=== PATIENT | female | born 1995 | race American Indian/Alaskan Native ===

== ENCOUNTER 2017-08-28 09:24 | Emergency (ER) | payer MEDICAID ==
[2015-03-30 06:25] VITALS: BMI 31.6
[2017-08-28] MEDS ORDERED: Lactated Ringer's 1,000 ML IV SCH (10:45)
[2017-08-28 11:18] LABS: SQUAMOUS EPITHIAL 4 /hpf (0-5); URINE BILIRUBIN NEGATIVE (NEGATIVE); URINE BLOOD NEGATIVE (NEGATIVE); URINE CLARITY Hazy (Clear); URINE COLOR Yellow (YELLOW); URINE GLUCOSE (UA) NORMAL (Normal); URINE LEUKOCYTE ESTERASE NEG Leu/uL (Negative); URINE NITRATE NEGATIVE (NEGATIVE); URINE PROTEIN 1+ mg/dL (NEGATIVE); URINE UROBILINOGEN NORMAL mg/dL (0.2-1.0)
--- NOTE | 2017-08-28 14:32 | OBDCSUM ---
Datetime: 08/28/2017 11:31 Discharged to, Provider: Home Follow up at, Provider: DR FACUNDO Mccarthy Instr Activity: Normal activity Disch Instr Diet: Regular Discharge Time: 08/28/2017 11:32 Follow up in weeks, Provider: 09/03/2017 Disch Referrals: None Disch Activity Restrictions: No exercising; Minimize stair-climbing; No sexual activity; Nothing in vagina - [place], tampons, douche Discharge Comment, Provider: no sex p hyt Discharge Diagnosis Prov Other: 22weeks r/o uti
--- NOTE | 2017-08-28 14:32 | OBHP ---
Datetime: 08/28/2017 11:59 IP Adm Impression: , intrauterine Admit Comment, IP Provider: Patient is a 21 year old [id number], who presents at 20 weeks and 3 days' ge station (HUANG 01/12/17 by LMP (04/07/17), complaining of lower abdominal pain of 2 weeks' duration. Rita ent states that the pain began and was initially manageable with position changes, but got worse (01/08 0) this morning prompting her to come to the hospital. Patient states that walking and lying flat nasima es the pain worse. Patient denies dysuria, moy hematuria and vaginal discharge/bleeding. Patient layton s been following at [facility] for this , but admits to scant care, only h aving 2 visits to date. Past obstetric history of positive for pre-term labor x2, but patient denies contractions and rupture of membranes on this occasion. Patient states she feels frequent movem ent and was feeling movement while being interviewed. Past OBHx 1) 2011, 38 weeks, male infant, 6lbs 7oz., (breech presentation), no complications 2) 2012, 37 weeks, male , _7lbs, (no TOLAC), no complications 3) 2014, _32 weeks, female , _5lbs, (no TOLAC), no complications Past GynHx FDLMP - April 07, 2017 Menarche - age 10 Cycles - irregular, between 28-30 days. Heavy bleeding first 3 days, non-painful Bleeding - 7 days STD Hx - Chlamydia (2009) treated Pap Hx - Atypical cells (2013), negative on re-testing. Last pap 3 weeks ago was normal. Patient d enies colposcopy, LEEP/Cryo and cone biopsies. Allergies: NKDA Medications: OTC vitamins (patient takes unreliably starting about 4 weeks gestation) PMHx: Patient denies PSHx: x3 FamHx Mom (34 years old, living) - possible AIDS, stomach cancer, hypertension, type 2 diabetes mellitus Dad (40's, living) - Hepatitis C, type 2 diabetes mellitus Social Hx EtOH - Patient denies. Tobacco - Patient denies. Drugs - Patient admits to cannibis in early , none since. Work - Unemployed Relationship - Boyfriend, father of the child VS: BP:118/56, HR:85, Temp: 98.8 Physical Examination: See above A/P: 21 year female at 20 week 3 days, HUANG (01/12/2018) by LMP (04/07/2017)complaining of low er abdominal pain of 2 weeks' duration 1. Stable, Afebrile 2. EFM: [place] (None) and FHR: 150, +accelerations and reactive 3. UA: Negative for infection 5. LR 1000ml bolus 6. Discharge home with pre-term labor precautions given, continue heavy hydration and advise to fo llow up for care at [facility]. 7. Plans discussed with attending Alejandro Frost DO, PGY-1 dr villanueva agrees Extremities - PN: Normal Abdomen - PN: Normal Back - PN: Not Done Breast - PN: Not Done Lungs - PN: Abnormal Heart - PN: Normal Thyroid - PN: Normal Neurologic - PN: Normal HEENT - PN: Abnormal General - PN: Normal FHR - Baseline A Provider: 150 Contraction Comments Provider: none Comments, ACOG Physical Exam: Gen: NAD Cardio: RRR, normal S1, S2 Pulm: CTA bilaterally Abdomen: Soft, Gravid Ext: No edema, no clubbing, no cyanosis EFM: TOCO: None FHR: 150, + accels, reactive Gestation - Est Wks by US: 20.3 EGA AdmitDate IP: 20.3 Vital Signs Provider: Reviewed; Within Normal Limits IP Chief Complaint: Maternal discomfort NICHD Variability Prov Fetus A: Moderate 6-25bpm NICHD Accel Fetus A IP Provider: 15X15 FHR Category Provider Fetus A: Category I NICHD Decel Fetus A IP Provider: None Dilatation, Provider: 0 Effacement, Provider: 0 Station, Provider: -3 Genitourinary Exam: Normal DTRs - PN: Not Done
[2017-08-28 18:56] VITALS: BP 118/56; PULSE 76; TEMP 98.8
== END 2017-08-28 11:30 | disposition home or self-care (01) ==
LOC: C.EROB 09:24
DX: O26.892 Other specified pregnancy related conditions, second trimester (principal); R10.30 Lower abdominal pain, unspecified; Z3A.20 20 weeks gestation of pregnancy
CPT/HCPCS: 81001; 99283; J7120

== ENCOUNTER 2017-10-25 16:46 | Observation (INO) | payer MEDICAID ==
[2017-10-25 17:15] VITALS: BMI 32.4
[2017-10-25] MEDS ORDERED: Lactated Ringer's 1,000 ML IV ONE (17:21)
[2017-10-25 17:24] LABS: BASO # 0.1 K/uL (0.0-0.2); BASO % 0.5 % (0.0-2.0); EOS # 0.3 K/uL (0.0-0.7); EOS % 2.2 % (0.0-4.0); HEMOGLOBIN 11.2 g/dL (11.0-16.0); LYMPH # 2.2 K/uL (1.0-4.3); LYMPH % 16.2 % (20.0-40.0); MEAN CELL VOLUME 91.9 fL (81.0-99.0); MEAN CORPUSCULAR HEMOGLOBIN 30.5 pg (27.0-31.0); MEAN CORPUSCULAR HGB CONC 33.2 g/dL (33.0-37.0); MONO # 0.5 K/uL (0.0-0.8); MONO % 4.1 % (0.0-10.0); NEUT # 10.2 K/uL (1.8-7.0); RBC 3.68 Mil/uL (3.80-5.20); RED CELL DISTRIBUTION WIDTH 13.9 % (11.5-14.5); WHITE BLOOD COUNT 13.3 K/uL (4.8-10.8)
[2017-10-25 17:32] LABS: SQUAMOUS EPITHIAL 19 /hpf (0-5); URINE BACTERIA OCC (<OCC); URINE BILIRUBIN NEGATIVE (NEGATIVE); URINE BLOOD NEGATIVE (NEGATIVE); URINE CLARITY Hazy (Clear); URINE COLOR Yellow (YELLOW); URINE GLUCOSE (UA) NORMAL (Normal); URINE LEUKOCYTE ESTERASE TRACE Leu/uL (Negative); URINE PROTEIN NEGATIVE (NEGATIVE); URINE UROBILINOGEN NORMAL mg/dL (0.2-1.0)
--- NOTE | 2017-10-25 18:21 | OBHP ---
Datetime: 10/25/2017 18:00 IP Adm Impression: , intrauterine Admit Comment, IP Provider: Patient is a 21 year old [id number], who presents at33.5 wks gestation (HUANG 01/12/17 by LMP (04/07/17), complaining of lower abdominal pain worsenign since yesterday. pt rpeorts c ramping localized in lwer pelvis was happenidng over 30 mintues so she says she wasn't paying attenti on to it but states started to get closer together. pt dneis any dysuria, urgency, consptaitn, vb, lo f, +FM. Pt reports urinary freuqency but is not new and assoicates to drining it with water. Pt dne is any fever, chills, nause, vomiting. Patient has been following at [facility] for this pre gnancy, but admits to scant care, only having 2 visits to date adn then transferred to Dr Basilio carney. Past OBHx 1) 2011, 38 weeks, male infant, 6lbs 7oz., (breech presentation), no complications 2) 2012, 37 weeks, male , _7lbs, (no TOLAC), no complications 3) 2014, _32 weeks, female infant, _5lbs, (no TOLAC), no complications Past GynHx FDLMP - April 07, 2017 Menarche - age 10 Cycles - irregular, between 28-30 days. Heavy bleeding first 3 days, non-painful Bleeding - 7 days STD Hx - Chlamydia (2009) treated Pap Hx - Atypical cells (2013), negative on re-testing. Last pap 3 weeks ago was normal. Patient d enies colposcopy, LEEP/Cryo and cone biopsies. Allergies: NKDA Medications: OTC vitamins (patient takes unreliably starting about 4 weeks gestation) PMHx: Patient denies PSHx: x3 FamHx Mom (34 years old, living) - possible AIDS, stomach cancer, hypertension, type 2 diabetes mellitus Dad (40's, living) - Hepatitis C, type 2 diabetes mellitus Social Hx EtOH - Patient denies. Tobacco - Patient denies. Drugs - Patient admits to cannibis in early , none since. Work - Unemployed Relationship - Boyfriend, father of the child VS: BP:118/56, HR:85, Temp: 98.8 Physical Examination: See above A/P: 21 year female at 33.5 HUANG (01/12/2018) by LMP (04/07/2017)complaining of lower abdomina l pain non specific -cbc -UA -IVH -pt reevlated, feels better -For celestone, f/u 24 hour for 2nd celestone - contraction given -f/u PMD tomorrow Pelvic Type - PN: Adequate Extremities - PN: Normal Abdomen - PN: Normal Back - PN: Normal Breast - PN: Not Done Lungs - PN: Normal Heart - PN: Normal Thyroid - PN: Not Done Neurologic - PN: Normal HEENT - PN: Normal General - PN: Normal FHR - Baseline A Provider: 150 Gestation - Est Wks by US: 33.5 EGA AdmitDate IP: 33.5 Vital Signs Provider: Reviewed; Within Normal Limits IP Chief Complaint: Maternal discomfort NICHD Variability Prov Fetus A: Moderate 6-25bpm FHR Category Provider Fetus A: Category I NICHD Decel Fetus A IP Provider: None Dilatation, Provider: 0 Effacement, Provider: 0 Station, Provider: -3 Genitourinary Exam: Normal DTRs - PN: Normal
[2017-10-25] MEDS ORDERED: Betamethasone Soluspan 30 mg/5mL Inj Susp IM ONE (18:25)
--- NOTE | 2017-10-25 20:37 | US ---
EXAM: US Biophysical Profile Without Non-Stress Testing EXAM DATE/TIME: Exam ordered 10/25/2017 7:40 PM CLINICAL HISTORY: 21 years old, female; Pain; Pain indication: Abd pain; ; Additional info: 32 weeks abdominal pain TECHNIQUE: Real-time ultrasound of the maternal pelvis for biophysical profile evaluation with image documentation. COMPARISON: No relevant prior studies available. FINDINGS: breathing movements: Present. Score 2/2. Gross body movements: Present. Score 2/2. tone: Present. Score 2/2. Qualitative amniotic fluid volume: Within normal limits. Score 2/2. Presentation: Vertex. Cervix: 4.3 cm in length and closed. Biometry BPD = [7.97 cm]; Estimated Menstrual Age = [32 w 0 d]; Range = [56D2V-83B2E] HC = [27.7 cm]; Estimated Menstrual Age = [30 w 2 d]; Range = [27W 2-D-33W 2D] AC = [28.68 cm]; Estimated Menstrual Age = [32 w 5 d]; Range = [14U4P-06U2I] FL = [6.31 cm]; Estimated Menstrual Age = [32 w 4 d]; Range = [50Q5I-23Y0I] HC/AC Ratio = [0.97] normal 0.96-1.14 EFW = 1158+ or -293 g (4 lbs. 5 oz. plus or -10 ounces) JOSE= 10.37 cm Placenta: Posterior Peak systolic velocity (umbilical artery): 59 cm/s; PS/ED is 1.9 HR =[146 bpm] Survey Lateral ventricles: not imaged 4 extremities: not imaged Posterior Fossa [Normal] Spine [Normal] Four-chamber Heart [Normal] Stomach [Normal] Kidneys [Normal] Bladder [Normal] Three-vessel cord: Normal Abdominal CORD insertion: Normal IMPRESSION: 1. Normal biophysical profile. 2. Single live intrauterine with an estimated menstrual age of 31 weeks and 6 days plus or -2 weeks and 2 days. 3. Limited survey. See above
--- NOTE | 2017-10-26 10:14 | OBPN ---
Datetime: 10/26/2017 10:09 Contraction Comments Provider: none FHR - Baseline A Provider: 130 IP Progress Note Comment: pt was seeen at bed side, c/o pain on walking,no vb, lof+fm nst 130 mod neo ve closed rosalba no ctxs plan betamethasone cont procardia reg deit cont close bser Vital Signs Provider: Reviewed; Within Normal Limits NICHD Accel Fetus A IP Provider: 15X15 FHR Category Provider Fetus A: Category I NICHD Variability Prov Fetus A: Moderate 6-25bpm Dilatation, Provider: 0 Effacement, Provider: 0 Station, Provider: -3 Datetime: 10/25/2017 18:00 Gestation - Est Wks by US: 33.5 NICHD Decel Fetus A IP Provider: None
--- NOTE | 2017-10-26 14:15 | OBPN ---
Datetime: 10/26/2017 14:10 Contraction Comments Provider: none FHR - Baseline A Provider: 130 IP Progress Note Comment: pt was seen at bed side, no ctxs, vb,lof+fm nst 130 mod neo ctg 1 s/p betamrthasone plan dc home betamethasone given ptl gven po hyra f/u in [facility] on thursday for betamethasone Vital Signs Provider: Reviewed; Within Normal Limits NICHD Accel Fetus A IP Provider: 15X15 FHR Category Provider Fetus A: Category I NICHD Variability Prov Fetus A: Moderate 6-25bpm
--- NOTE | 2017-10-26 14:15 | OBDCSUM ---
Datetime: 10/26/2017 14:10 Discharged to, Provider: Home Follow up at, Provider: Dr. Castillo Disch Instr Diet: Regular Discharge Time: 10/26/2017 14:11 Follow up in weeks, Provider: Thursday10/30/17 Disch Referrals: None Disch Activity Restrictions: No sexual activity; Nothing in vagina - [place], tampons, douche Discharge Comment, Provider: ptl nellie hillman f/u in [place] on thursday for betamethasone Discharge Diagnosis Prov Other: 33week nst ctxs
[2017-10-26 20:11] VITALS: BP 122/64; PULSE 101; RESP 18; TEMP 97.5; O2SAT 98
[2017-10-27] MEDS ORDERED: Betamethasone Soluspan 30 mg/5mL Inj Susp IM ONE (08:35)
== END 2017-10-26 15:00 | disposition home or self-care (01) ==
LOC: C.EROB 16:46 → C.4D 18:53
PROVIDERS: ADMIT Obstetrics & Gynecology; ATTEND Obstetrics & Gynecology
DX: O26.893 Other specified pregnancy related conditions, third trimester (principal); Z3A.33 33 weeks gestation of pregnancy
CPT/HCPCS: 76815; 76818; 81001; 85025; G0378; J0702; J7120

== ENCOUNTER 2017-10-27 08:44 | Emergency (ER) | payer MEDICAID ==
[2017-10-27 08:58] VITALS: BMI 32.3
[2017-10-27] MEDS ORDERED: Betamethasone Soluspan 30 mg/5mL Inj Susp IM ONE (09:00)
[2017-10-27 13:55] VITALS: BP 129/66; PULSE 90; RESP 18; TEMP 97.1
--- NOTE | 2017-10-27 21:34 | OBHP ---
Datetime: 10/27/2017 09:38 Admit Comment, IP Provider: Patient is a 21 year old [id number], who presents at 32 weeks and 3 days ges tation (HUANG 12/19/17 by approximated LMP (03/14/17) for 2nd betamethasone shot. Patient has no compali nts at this time. She denies any fever, chills, chest pain, SOB, changes in vision, dizziness, heada javon, abdominal pain, nausea, vomiting, changes in bowel habits, or urinary symptoms. Denies uterine c ontractions and endorses movement. Denies any blood, discharge, or fluid from the Vagina. Rita ent recently started Procardia yesterdia and stated she did not feel well because of it. She stated it caused her to feel dizzy and uneasy. ante[facility] to Dr. Castillo Past OBHx 1) 2011, 38 weeks, male infant, 6lbs 7oz., (breech presentation), no complications 2) 2012, 37 weeks, male infant, _7lbs, , no complications 3) 2014, _32 weeks PPROM, female infant, _5lbs, , no complications 4) Current Past GynHx FDLMP - March 14, 2017 (Approximated, patient is unsure) Menarche - age 10 Cycles - irregular, between 28-30 days. Heavy bleeding first 3 days, non-painful Bleeding - 7 days STD Hx - Chlamydia (2009) treated Pap Hx - Atypical cells (2013), negative on re-testing. Last pap 3 weeks ago was normal. Patient d enies colposcopy, LEEP/Cryo and cone biopsies. Allergies: NKDA Medications: OTC vitamins (patient takes unreliably starting about 4 weeks gestation). Pr ocardia 10mg TID PMHx: Patient denies PSHx: x3 FamHx: Mom (34 years old, living) - possible AIDS, stomach cancer, hypertension, type 2 diabetes mellitus Dad (40's, living) - Hepatitis C, type 2 diabetes mellitus Social Hx EtOH - Patient denies. Tobacco - Patient denies. Drugs - Patient admits to cannibis in early , none since. Work - Unemployed Relationship - Boyfriend, father of the child VS: BP:129/69, HR:95, Temp: 97.1 Physical Examination: Gen: NAD, AAOx3 Pulm: Lungs CTA Heart: +S1, S2, No Murmurs Abd: Gravid, Non-tender Ext: No pedal Edema, +2 capillary Refill, A/P: 21 year female at 32w3D HUANG (12/19/2017) by LMP (03/14/2017) present for 2nd dose of Be tamethasone. -Afebile, Stable - Monitoring -Betamethasone 12 mg IM -DC to Home Dispo: Patient was advised to call ObGyn (Dr. Castillo) if she continues to have side effects from t he procardia. She is aware of her follow up appointment on Thursday10/30/17. Pelvic rest has been gregoria nforced. Patient discussed with Attending Thao Staples, PGY1 patient examined.agree with above Extremities - PN: Normal Lungs - PN: Normal Heart - PN: Normal Neurologic - PN: Normal General - PN: Normal FHR - Baseline A Provider: 130 Vital Signs Provider: Reviewed NICHD Variability Prov Fetus A: Moderate 6-25bpm NICHD Accel Fetus A IP Provider: 15X15 FHR Category Provider Fetus A: Category I NICHD Decel Fetus A IP Provider: None Datetime: 10/26/2017 14:10 Contraction Comments Provider: none Datetime: 10/26/2017 10:09 Dilatation, Provider: 0 Effacement, Provider: 0 Station, Provider: -3 Datetime: 10/25/2017 18:00 EGA AdmitDate IP: 33.5
== END 2017-10-27 09:40 | disposition home or self-care (01) ==
LOC: C.EROB 08:44
DX: O26.893 Other specified pregnancy related conditions, third trimester (principal); Z3A.32 32 weeks gestation of pregnancy
CPT/HCPCS: 96372; 99283; J0702

== ENCOUNTER 2017-11-18 16:22 | Inpatient (IN) | payer MEDICAID ==
--- NOTE | 2017-11-18 16:47 | OBADHP ---
Datetime: 10/27/2017 09:38 Admit Comment, IP Provider: Patient is a 21 year old [id number], who presents at 32 weeks and 3 days ges tation (HUANG 12/19/17 by approximated LMP (03/14/17) for 2nd betamethasone shot. Patient has no compali nts at this time. She denies any fever, chills, chest pain, SOB, changes in vision, dizziness, heada javon, abdominal pain, nausea, vomiting, changes in bowel habits, or urinary symptoms. Denies uterine c ontractions and endorses movement. Denies any blood, discharge, or fluid from the Vagina. Rita ent recently started Procardia yesterdia and stated she did not feel well because of it. She stated it caused her to feel dizzy and uneasy. ante:[facility] to Dr. Castillo Past OBHx 1) 2011, 38 weeks, male infant, 6lbs 7oz., (breech presentation), no complications 2) 2012, 37 weeks, male infant, _7lbs, , no complications 3) 2014, _32 weeks PPROM, female infant, _5lbs, , no complications 4) Current Past GynHx FDLMP - March 14, 2017 (Approximated, patient is unsure) Menarche - age 10 Cycles - irregular, between 28-30 days. Heavy bleeding first 3 days, non-painful Bleeding - 7 days STD Hx - Chlamydia (2009) treated Pap Hx - Atypical cells (2013), negative on re-testing. Last pap 3 weeks ago was normal. Patient d enies colposcopy, LEEP/Cryo and cone biopsies. Allergies: NKDA Medications: OTC vitamins (patient takes unreliably starting about 4 weeks gestation). Pr ocardia 10mg TID PMHx: Patient denies PSHx: x3 FamHx: Mom (34 years old, living) - possible AIDS, stomach cancer, hypertension, type 2 diabetes mellitus Dad (40's, living) - Hepatitis C, type 2 diabetes mellitus Social Hx EtOH - Patient denies. Tobacco - Patient denies. Drugs - Patient admits to cannibis in early , none since. Work - Unemployed Relationship - Boyfriend, father of the child VS: BP:129/69, HR:95, Temp: 97.1 Physical Examination: Gen: NAD, AAOx3 Pulm: Lungs CTA Heart: +S1, S2, No Murmurs Abd: Gravid, Non-tender Ext: No pedal Edema, +2 capillary Refill, A/P: 21 year female at 32w3D HUANG (12/19/2017) by LMP (03/14/2017) present for 2nd dose of Be tamethasone. -Afebile, Stable - Monitoring -Betamethasone 12 mg IM -DC to Home Dispo: Patient was advised to call ObGyn (Dr. Castillo) if she continues to have side effects from t he procardia. She is aware of her follow up appointment on Thursday10/30/17. Pelvic rest has been gregoria nforced. Patient discussed with Attending Thao Staples, PGY1 patient examined.agree with above Extremities - PN: Normal Lungs - PN: Normal Heart - PN: Normal Neurologic - PN: Normal General - PN: Normal FHR - Baseline A Provider: 130 Vital Signs Provider: Reviewed NICHD Variability Prov Fetus A: Moderate 6-25bpm NICHD Accel Fetus A IP Provider: 15X15 FHR Category Provider Fetus A: Category I NICHD Decel Fetus A IP Provider: None Datetime: 10/26/2017 14:10 Contraction Comments Provider: none Datetime: 10/26/2017 10:09 Dilatation, Provider: 0 Effacement, Provider: 0 Station, Provider: -3 Datetime: 10/25/2017 18:00 Pelvic Type - PN: Adequate Abdomen - PN: Normal Back - PN: Normal Breast - PN: Not Done Thyroid - PN: Not Done HEENT - PN: Normal Gestation - Est Wks by US: 33.5 IP Chief Complaint: Maternal discomfort Genitourinary Exam: Normal DTRs - PN: Normal EGA AdmitDate IP: 33.5 IP Adm Impression: , intrauterine Datetime: 08/28/2017 11:59 Comments, ACOG Physical Exam: Gen: NAD Cardio: RRR, normal S1, S2 Pulm: CTA bilaterally Abdomen: Soft, Gravid Ext: No edema, no clubbing, no cyanosis EFM: TOCO: None FHR: 150, + accels, reactive
--- NOTE | 2017-11-18 17:22 | OBADHP ---
Datetime: 11/18/2017 17:18 Admit Comment, IP Provider: at 37.1week came with ctxs started last night, get worse today. pt toolk procardia and still feel ctxs, no vb, lof+fm obhx 3 x c/s pmh de med pnv all nkda psh c/s x3 soch de ve 2/60/-2 a/p at 37+weeks previous c/s in labor admit to l_d npo/ivf labs cont rosalba ad efm anthesia aware skin bxs type and cross informed consent taken Pelvic Type - PN: Adequate Extremities - PN: Normal Abdomen - PN: Normal Back - PN: Normal Breast - PN: Normal Lungs - PN: Normal Heart - PN: Normal Thyroid - PN: Normal Neurologic - PN: Normal HEENT - PN: Normal General - PN: Normal FHR - Baseline A Provider: 130 Contraction Comments Provider: irrg Comments, ACOG Physical Exam: gravid,non tender ext no edema,no calf ten ve 2/60/-2 IP Hx Assessment: The History has been Reviewed and is Current Vital Signs Provider: Reviewed; Within Normal Limits IP Chief Complaint: Uterine contractions NICHD Variability Prov Fetus A: Moderate 6-25bpm NICHD Accel Fetus A IP Provider: 15X15 FHR Category Provider Fetus A: Category I Dilatation, Provider: 2 Effacement, Provider: 60 Station, Provider: -2 Genitourinary Exam: Normal DTRs - PN: Normal EGA AdmitDate IP: 37.1 IP Adm Impression: Term, intrauterine ; Active labor IP Admit Plan: Admit to unit; Initiate Section protocol
[2017-11-18 17:23] VITALS: BMI 35.9
[2017-11-18] MEDS ORDERED: cefOXitin 2 GM in Sodium Chloride 0.9% 100 ML IVPB ONE (17:23)
[2017-11-18] MEDS ORDERED: Sodium Citrate/Citric Acid 15 ml Sol PO STA (18:02)
[2017-11-18] MEDS ORDERED: Sodium Citrate/Citric Acid 15 ml Sol ONE ×2 (18:12→18:24)
[2017-11-18 18:21] LABS: BASO % 0.1 % (0.0-2.0); EOS # 0.1 K/uL (0.0-0.7); EOS % 1.2 % (0.0-4.0); HEMOGLOBIN 11.3 g/dL (11.0-16.0); LYMPH % 17.7 % (20.0-40.0); MEAN CELL VOLUME 89.4 fL (81.0-99.0); MEAN CORPUSCULAR HGB CONC 33.5 g/dL (33.0-37.0); MEAN PLATELET VOLUME 10.1 fL (7.2-11.7); MONO # 0.5 K/uL (0.0-0.8); MONO % 4.6 % (0.0-10.0); NEUT # 8.5 K/uL (1.8-7.0); NEUT % 76.4 % (50.0-75.0); NRBC % 0.1 % (0.0-2.0); RBC 3.76 Mil/uL (3.80-5.20); RED CELL DISTRIBUTION WIDTH 13.9 % (11.5-14.5); WHITE BLOOD COUNT 11.2 K/uL (4.8-10.8)
[2017-11-18] MEDS ORDERED: ceFAZolin IV 2 gm in Dextrose 2 GM/50 ML BAG IVPB ONE (18:24)
[2017-11-18] MEDS ORDERED: Oxytocin 20 units in LR 2,000 ML IV ONE (18:24)
[2017-11-18] MEDS ORDERED: Oxytocin 10 Units/ml Inj ONE (18:32)
[2017-11-18 18:37] LABS: SQUAMOUS EPITHIAL 3 /hpf (0-5); URINE BACTERIA OCC (<OCC); URINE BILIRUBIN NEGATIVE (NEGATIVE); URINE BLOOD NEGATIVE (NEGATIVE); URINE CALCIUM OXALATE CRYSTALS OCC /hpf (<OCC); URINE CLARITY Hazy (Clear); URINE COLOR Yellow (YELLOW); URINE GLUCOSE (UA) NORMAL (Normal); URINE LEUKOCYTE ESTERASE NEG Leu/uL (Negative); URINE PROTEIN NEGATIVE (NEGATIVE); URINE UROBILINOGEN NORMAL mg/dL (0.2-1.0)
[2017-11-18 18:38] LABS: BLOOD UREA NITROGEN 10 mg/dL (7-17); GFR AFRICAN-AMERICAN > 60; GFR NON-AFRICAN AMERICAN > 60
[2017-11-18] MEDS ORDERED: Lactated Ringer's 1,000 ML IV SCH (18:45)
[2017-11-18] MEDS ORDERED: Morphine 1 mg/ml preservative-free Inj(Duramorph) ONE (18:48)
--- NOTE | 2017-11-18 19:55 | OBDS ---
DELIVERY PERSONNEL Delivery Doctor: Aj Castillo MD Scrub Nurse: Lorrie Flynn [employer] Manager: Jocelin Medina RN Anesthesiologist: MATERNAL INFORMATION Delivery Anesthesia: Spinal Provider Comments: baby deliverd in petty. endometrium clean 9/9 no com LABOR SUMMARY EDC: 12/08/2017 00:00 No. Babies in Womb: 1 Attempted: No Labor Anesthesia: None LABOR INFORMATION Reason for Induction: Not Applicable Oxytocin: N/A Group B Beta Strep: Negative (Annotations: Verbal per Dr. Castillo) Steroids Given: None Reason Steroids Not Administered: Not Applicable STAGES OF LABOR Stage 3 hrs: 0 Stage 3 min: 1 VAGINAL DELIVERY Episiotomy: None Laceration Extension: N/A Laceration Type: None CSECTION DELIVERY Primary Indication: Repeat Elective CSection Urgency: Elective CSection Incidence: Repeat Labor: N/A CSection Incision: Lower Uterine Transverse BABY A INFORMATION Delivery Date/Time: 11/18/2017 19:25 Method of Delivery: Born in Route : No : N/A Forceps: N/A Vacuum Extraction: N/A Shoulder Dystocia : No SHOULDER DYSTOCIA BABY A Delivery Date/Time: 11/18/2017 19:25 PRESENTATION/POSITION BABY A Presentation: Cephalic Cephalic Presentation: Vertex Vertex Position: Left Occipital Anterior Breech Presentation: N/A PLACENTA INFORMATION BABY A Placenta Delivery Time : 11/18/2017 19:26 Placenta Method of Delivery: Expressed Placenta Status: Delivered SCORES BABY A Heart Rate 1 min: >100 bpm Resp Effort 1 min: Good Cry Reflex Irritability 1 min: Cough or Sneeze or Pulls Away Muscle Tone 1 min: Active Motion Color 1 min: Body [place], Extremities Blue SCORE 1 MIN: 9 Heart Rate 5 min: >100 bpm Resp Effort 5 min: Good Cry Reflex Irritability 5 min: Cough or Sneeze or Pulls Away Muscle Tone 5 min: Active Motion Color 5 min: Body [place], Extremities Blue SCORE 5 MIN: 9 INFORMATION BABY A Gestational Age at Delivery: 37.1 Gestational Status: Term Outcome : Liveborn Infant Condition : Stable Sex: Male IDENTIFICATION/MEDS BABY A ID Band Number: [id number] ID Band Location: Left Leg; Left Arm Sensor Applied: Yes Sensor Number: [id number] Sensor Location : Cord Clamp WEIGHT/LENGTH BABY A Infant Birthweight (gms): 2740 Weight (lb): 6 Infant Weight (oz): 1 Length Inches: 18.50 Infant Length cms: 47.0 CORD INFORMATION BABY A No. Cord Vessels: 3 Nuchal Cord : N/A Cord Blood Taken: Yes ASSESSMENT BABY A Complications: None Physical Findings at Delivery: Within Normal Limits Respirations: Appears Normal Furniture Finisher/ALS Called : No Infant Care By: / KARIE Dean Transferred To: Remains with Mother
[2017-11-18] MEDS ORDERED: DiphenhydrAMINE 50 mg/ml Inj IVP PRN (19:56)
[2017-11-18] MEDS ORDERED: Morphine 4 MG/ML VIAL IV PRN (19:57)
--- NOTE | 2017-11-18 19:57 | PCM.SURG1 ---
Surgeon's Initial Post Op Note - Surgeon's Notes Surgeon: dr patterson Farm Tractor Operator: dr spann Type of Anesthesia: Spinal Anesthesia Administered By: dr locke Pre-Operative Diagnosis: 22 yr at 37+weeks previous c/s i labor Operative Findings: see the op reorts Post-Operative Diagnosis: same Operation Performed: repeat section Specimen/Specimens Removed: cord blood. cord gas Estimated Blood Loss: EBL {In ML}: 800 Blood Products Given: N/A Drains Used: No Drains Post-Op Condition: Good Date of Surgery/Procedure: 11/18/17 Time of Surgery/Procedure: 20:20
--- NOTE | 2017-11-19 06:28 | OBPPN ---
Datetime: 11/19/2017 06:26 PP Pain Prov: Within normal limits PP Nausea Prov: Denies PP Flatus Prov: No PP Abdomen/Uterus Prov: Normal PP Extremities Prov: Normal PP Comments Phys Exam Prov: fudus below umblicus ext mild bill inbcision clean and dry PP Impression Prov: Normal progression PP Plan Prov: Continue present management PP Progress Note Prov: pt was seen at bed sifde, pain undr control,no n/v, tolerating liqyuid deit,m in lochi, waiting to void pod#1 s/p c/s cont post op care reg deit cbcc encourage am cont post op care Vital Signs Provider PP: Reviewed; Within Normal Limits
--- NOTE | 2017-11-19 07:20 | OP ---
PROCEDURE DATE: 11/18/2017 PREOPERATIVE DIAGNOSIS: A 22-year-old 4, para 3 at 37 weeks, and previous section and labor. PROCEDURE: Primary section. SURGEON: Aj Castillo MD DOUBLE ENDING MACHINE OPERATOR: Dr. Montoya, who was present throughout the surgical exposure, retraction, pushing at the time of the delivery. TYPE OF ANESTHESIA: Spinal anesthesia. ANESTHESIOLOGIST: Dr. Mendoza. COMPLICATIONS: None. ESTIMATED BLOOD LOSS: 800 mL. DESCRIPTION OF PROCEDURE: After informed consent was obtained, the patient was brought to the operating room, placed on the table, where spinal anesthesia was given. Once the anesthesia was given, she was prepped and draped in the normal sterile fashion. At the site of the previous skin incision, an incision was made with a knife; the subcutaneous cut with a Bovie. The fascia was excised on both sides using curved Beaver scissors. The fascia was from the site of umbilicus and then at the site of rectus muscle. The rectus muscle was lifted up with 2 Allis and was cut with a knife, then the peritoneum was lifted up, cut with the knife and it was completely down with the knife. There was an adhesion in the omentum which was taken out after that. Bladder blade was placed. Bladder flap was created. Lower uterine segment incision was made with a knife, it was extended using Bovie and curved Beaver scissors. Baby delivered in CARLOS position. Cord was clamped and cut. Baby was handed to the awaiting order booker. Placenta delivered manually and sent to Pathology. Uterus was exteriorized and cleared of all clots and debris. The uterine incision was closed using #1 Vicryl in running interlocking fashion, second layer was closed with the same stitch. The cul-de-sac was cleared of all the clots and debris, uterus was returned back to the abdominal cavity. Once again, it was looked back and again it was hemostatic. Interceed was placed, and the omentum . Peritoneum was closed using 2-0 Vicryl in a running interlocking fashion. The muscle was closed using 2-0 Vicryl in running interlocking fashion. Fascia was closed using #1 Vicryl in running interlocking fashion. Subcutaneous tissue was closed with interrupted fashion. Skin was closed using feliciano. Patient tolerated the procedure well. Lap, sponge, and instrument counts were correct x2. Aj Castillo MD Name, M.D. (Insert Co-signer name using "Ctrl + Shift + I" window. Delete the co-signature block if not applicable.) cc:
[2017-11-19 08:22] LABS: HEMOGLOBIN 10.9 g/dL (11.0-16.0); MEAN CELL VOLUME 89.3 fL (81.0-99.0); MEAN CORPUSCULAR HEMOGLOBIN 30.1 pg (27.0-31.0); MEAN CORPUSCULAR HGB CONC 33.7 g/dL (33.0-37.0); MEAN PLATELET VOLUME 9.7 fL (7.2-11.7); RBC 3.63 Mil/uL (3.80-5.20); RED CELL DISTRIBUTION WIDTH 14.2 % (11.5-14.5)
[2017-11-19] MEDS: Oxycodone/Acetaminophen 5/325 mg Tab PO PRN ×3 (08:49→23:03)
[2017-11-19 10:48] LABS: BARBITURATES, UR NEGATIVE (NEGATIVE); BENZODIAZEPINES, UR NEGATIVE (NEGATIVE); OPIATES, UR NEGATIVE (NEGATIVE); PHENCYCLIDINE, UR NEGATIVE (NEGATIVE)
[2017-11-20] MEDS: Oxycodone/Acetaminophen 5/325 mg Tab PO PRN ×4 (03:18→19:00)
--- NOTE | 2017-11-20 20:11 | CP.PCM.PN ---
Subjective - Date & Time of Evaluation Date of Evaluation: 11/20/17 Time of Evaluation: 20:08 - Subjective Subjective: PT complaining of spinal headache. She took advil, motrin and tylenol is not helping. She has not ambulated d/t the pain. She was evaluated by anesthesia but nothing was done. Objective - Vital Signs/Intake and Output Vital Signs (last 24 hours): Temp Pulse Resp BP Pulse Ox 98.0 F 88 18 121/68 98 11/20/17 08:00 11/20/17 08:00 11/20/17 08:00 11/20/17 08:00 11/20/17 08:00 - Medications Medications: Current Medications Diphenhydramine HCl (Benadryl) 25 mg PO Q6 PRN PRN Reason: Itching / Pruritus Last Admin: 11/19/17 20:58 Dose: 25 mg Lactated Ringer's (Lactated Ringer's) 1,000 mls @ 125 mls/hr IV .Q8H JAC Oxytocin (Pitocin 20 Units In Lr) 1,000 mls @ 125 mls/hr IV .Q8H JAC PRN Reason: Protocol Ibuprofen (Motrin Tab) 600 mg PO Q4 PRN PRN Reason: Pain, Mild (1-3) Last Admin: 11/20/17 17:32 Dose: 600 mg Morphine Sulfate (Morphine) 4 mg IV Q4 PRN PRN Reason: Pain, severe (8-10) Ondansetron HCl (Zofran Inj) 4 mg IVP Q6H PRN PRN Reason: Nausea/Vomiting Oxycodone/Acetaminophen (Percocet 5/325 Mg Tab) 1 tab PO Q4H PRN PRN Reason: Pain, moderate (4-7) Stop: 11/21/17 18:46 Last Admin: 11/20/17 08:29 Dose: 1 tab Oxycodone/Acetaminophen (Percocet 5/325 Mg Tab) 2 tab PO Q4H PRN PRN Reason: Pain, severe (8-10) Stop: 11/21/17 18:46 Last Admin: 11/20/17 19:00 Dose: 2 tab - Labs Labs: 11/19/17 08:10 11/18/17 18:16 - Constitutional Appears: Well, No Acute Distress - Head Exam Head Exam: ATRAUMATIC - Eye Exam Eye Exam: Normal appearance - GI/Abdominal Exam Additional comments: fundu firm at the umbilicus. Assessment and Plan - Assessment and Plan (Free Text) Assessment: S/P Section Post op Day# Plan: 1) Headache; possibly spinal -> to be evaluated by anesthesia. 2) Bottle feeding 3) Encouraged ambulation. 4) Routine post op care
[2017-11-21] MEDS: Oxycodone/Acetaminophen 5/325 mg Tab PO PRN ×3 (01:04→15:37)
[2017-11-21] MEDS: Apap-Butalbital-Caffeine 325-50-40mg Tab PO PRN ×3 (04:12→16:53)
--- NOTE | 2017-11-21 09:18 | OBPPN ---
Datetime: 11/21/2017 09:06 PP Pain Prov: Within normal limits PP Nausea Prov: Denies PP Flatus Prov: Yes PP BM Prov: Yes PP Breasts Prov: Normal PP Heart Prov: Normal PP Lungs Prov: Normal PP Abdomen/Uterus Prov: Normal PP Lochia Prov: Normal PP Vulva/Perineum Prov: Not Done PP CVA Tenderness Prov: Normal PP Extremities Prov: Normal PP C/S Incision Prov: Normal PP Progress Prov: Normal PP Comments Phys Exam Prov: Breasts: no cracked nipples Abdomen: (+) BS. Soft. non distended. Incision with feliciano - clean, dry, intact. Fundus firm, mo bile, non tender. Mild lochia rubra Extremities: no calf tenderness, trace pedal edema bilaterally; no cyanosis All other systems reviewed and are negative PP Impression Prov: Normal progression PP Plan Prov: Discharge PP Progress Note Prov: This is private patient of Dr. Castillo Patient received in room 459, eating breakfast. Reports positional headache is better after takin g medication. Ambulating and voiding without incident. Denies nausea or vomiting. (+) flatus; (-) BM . P.E.: as above. Mildly obese, in NAD. Awake, alert, oriented to time, person and place. Pleasant and cooperative. - POD#1 10.9/32.5. Rh(+) Assessment: POD#3, 22 y.o. P4, S/P repeat C/S. Presumed spinal headache improving with fioricet. Afebrile, vital signs stable. Unsure re: contraception. Anemia - asymptomatic anad hemodynamically stable. Patient is clinically stable; cleared for discharge Plan: 1) Discharge home 2) See full discharge instructions Vital Signs Provider PP: Reviewed
--- NOTE | 2017-11-21 19:35 | CP.PCM.PN ---
Subjective - Date & Time of Evaluation Date of Evaluation: 11/21/17 Time of Evaluation: 13:00 - Subjective Subjective: 22 y/o F s/p POD#3 with signs&symptoms consistent with post-dural puncture headache. Following initial conservative treatment, decision made with patient to perform lumbar epidural blood patch procedure. Risks & benefits were fully explained, then informed consent obtained. Blood patch was performed (see separate procedure note) and patient was instructed to remain supine for 1 hour and aggressively hydrated. Patient reported moderate relief from headache symptoms and expressed a desire to go home by 7pm. With family present, she was instructed to remain supine as much as possible and limit physical activity for next several days. She was also told to return to [facility] ED if headache worsens and/or symptoms persist. She understood and verbalized the instructions and was cleared for discharge per anesthesia. Objective - Vital Signs/Intake and Output Vital Signs (last 24 hours): Temp Pulse Resp BP Pulse Ox 98.8 F 85 20 126/71 100 11/21/17 07:46 11/21/17 07:46 11/21/17 07:46 11/21/17 07:46 11/21/17 07:46 - Medications Medications: Current Medications Acetaminophen/Butalbital/Caffeine (Fioricet) 1 tab PO Q4 PRN PRN Reason: Headache Last Admin: 11/21/17 16:53 Dose: 1 tab Diphenhydramine HCl (Benadryl) 25 mg PO Q6 PRN PRN Reason: Itching / Pruritus Last Admin: 11/19/17 20:58 Dose: 25 mg Lactated Ringer's (Lactated Ringer's) 1,000 mls @ 125 mls/hr IV .Q8H JAC Oxytocin (Pitocin 20 Units In Lr) 1,000 mls @ 125 mls/hr IV .Q8H JAC PRN Reason: Protocol Ibuprofen (Motrin Tab) 600 mg PO Q4 PRN PRN Reason: Pain, Mild (1-3) Last Admin: 11/20/17 17:32 Dose: 600 mg Morphine Sulfate (Morphine) 4 mg IV Q4 PRN PRN Reason: Pain, severe (8-10) Ondansetron HCl (Zofran Inj) 4 mg IVP Q6H PRN PRN Reason: Nausea/Vomiting - Labs Labs: 11/19/17 08:10 11/18/17 18:16
--- NOTE | 2017-11-21 19:48 | CP.PCM.PN ---
Subjective - Date & Time of Evaluation Date of Evaluation: 11/21/17 Time of Evaluation: 13:15 - Subjective Subjective: Risks and benefits of epidural blood patch procedure explained to patient. Informed consent obtained. Formal time out performed with 2 nurses present. Patient was properly postioned, back was prepped and draped in a sterile fashion then the subcutaneous skin was infiltrated with 1%lidocaine. At the L4- L5 interspace GAMAL was obtained at approximately 6cm. Then in a sterile fashion the nurse operations administrative assistant yoseph approximately 20cc blood from the right hand. Slowly a total of 15cc of heme was introduced into the epidural space at which point the patient stated she felt 'a change' in her symptoms. At the conclusion of the procedure the patient was laid supine and stated she felt significant relief. She was instructed to remain spine for approximately one hour and was aggressively hydrated. She was monitored closely following the procedure by the nursing staff and there were no apparent complications Objective - Vital Signs/Intake and Output Vital Signs (last 24 hours): Temp Pulse Resp BP Pulse Ox 98.8 F 85 20 126/71 100 11/21/17 07:46 11/21/17 07:46 11/21/17 07:46 11/21/17 07:46 11/21/17 07:46 - Medications Medications: Current Medications Acetaminophen/Butalbital/Caffeine (Fioricet) 1 tab PO Q4 PRN PRN Reason: Headache Last Admin: 11/21/17 16:53 Dose: 1 tab Diphenhydramine HCl (Benadryl) 25 mg PO Q6 PRN PRN Reason: Itching / Pruritus Last Admin: 11/19/17 20:58 Dose: 25 mg Lactated Ringer's (Lactated Ringer's) 1,000 mls @ 125 mls/hr IV .Q8H JAC Oxytocin (Pitocin 20 Units In Lr) 1,000 mls @ 125 mls/hr IV .Q8H JAC PRN Reason: Protocol Ibuprofen (Motrin Tab) 600 mg PO Q4 PRN PRN Reason: Pain, Mild (1-3) Last Admin: 11/20/17 17:32 Dose: 600 mg Morphine Sulfate (Morphine) 4 mg IV Q4 PRN PRN Reason: Pain, severe (8-10) Ondansetron HCl (Zofran Inj) 4 mg IVP Q6H PRN PRN Reason: Nausea/Vomiting - Labs Labs: 11/19/17 08:10 11/18/17 18:16
[2017-11-22 00:07] VITALS: BP 129/73; PULSE 83; RESP 18; TEMP 98.5; O2SAT 98
== END 2017-11-21 19:45 | disposition home or self-care (01) | DRG 371 ==
LOC: C.EROB 16:22 → C.4D 17:43 → C.4M 22:41
PROVIDERS: ADMIT Obstetrics & Gynecology; ATTEND Obstetrics & Gynecology
PROC: 10D00Z1 Extraction of Products of Conception, Low, Open Approach (ICD-10-PCS; principal; 2017-11-18)
PROC: 3E0R3GC Introduction of Other Therapeutic Substance into Spinal Canal, Percutaneous Approach (ICD-10-PCS; 2017-11-21)
DX: O34.211 Maternal care for low transverse scar from previous cesarean delivery (principal); N85.8 Other specified noninflammatory disorders of uterus; Z3A.37 37 weeks gestation of pregnancy; Z37.0 Single live birth; O75.82 Onset (spontaneous) of labor after 37 completed weeks of gestation but before 39 completed weeks gestation, with delivery by (planned) cesarean section; G97.1 Other reaction to spinal and lumbar puncture; Y84.4 Aspiration of fluid as the cause of abnormal reaction of the patient, or of later complication, without mention of misadventure at the time of the procedure; O99.214 Obesity complicating childbirth; E66.9 Obesity, unspecified

== ENCOUNTER 2018-07-11 04:51 | Emergency (ER) | payer MEDICAID ==
[2018-07-11 04:52] VITALS: BMI 35.9
[2018-07-11 05:07] VITALS: TEMP 98.2
--- NOTE | 2018-07-11 05:17 | C.PDOC ---
History Of Present Illness 22 year old female is brought to the ED by EMS c/o dental pain. Patient states for the past 4 months she has been having left upper and lower dental pain. Patient reports she took Tylenol with no relief. Patient denies fever, chills, nausea, vomit, headache,dizziness, injury, fall, trauma. Time Seen by Provider: 07/11/18 05:09 Chief Complaint (Nursing): Dental Pain History Per: Patient History/Exam Limitations: no limitations Onset/Duration Of Symptoms: Intermittent Episodes Current Symptoms Are (Timing): Still Present Recent travel outside of the [place]: No Additional History Per: Patient Past Medical History Reviewed: Historical Data, Nursing Documentation, Vital Signs Vital Signs: Last Vital Signs Temp 98.2 F 07/11/18 05:01 Pulse 58 L 07/11/18 05:01 Resp 18 07/11/18 05:01 BP 121/75 07/11/18 05:01 Pulse Ox 99 07/11/18 05:01 - Medical History PMH: No Chronic Diseases Surgical History: No Surg Hx - [facility] Procedures EXTRACTION OF POC, LOW CERVICAL, OPEN APPROACH (11/18/17) INTRODUCE OTH THERAP SUBST IN SPINAL CANAL, PERC (11/18/17) LOW CERVICAL (03/30/15) Family History: States: Unknown Family Hx - Social History Hx Alcohol Use: No Hx Substance Use: No - Immunization History Hx Tetanus Toxoid Vaccination: No Hx Influenza Vaccination: No Hx Pneumococcal Vaccination: No Review Of Systems Constitutional: Negative for: Fever, Chills Eyes: Negative for: Vision Change ENT: Positive for: Mouth Pain. Negative for: Mouth Swelling Neurological: Negative for: Headache, Dizziness Physical Exam - Physical Exam Appears: Non-toxic, No Acute Distress Skin: Normal Color, Warm, Dry Head: Atraumatic, Normacephalic, No Swelling (facial) Eye(s): bilateral: Normal Inspection, PERRL Oral Mucosa: Moist, No Drooling, No Trismus Tongue: Normal Appearing Teeth: Caries (left lower posterior molar), No Tender To Palpation Gingiva: No Erythema, No Swelling, No Tender, No Abscess Neck: Normal ROM, Supple, No Other (swelling) Extremity: Normal ROM Neurological/Psych: Oriented x3, Normal Speech, Normal Cognition Gait: Steady ED Course And Treatment O2 Sat by Pulse Oximetry: 99 (ON RA ) Pulse Ox Interpretation: Normal Progress Note: Plan: - Motrin 800 mg PO. Patient is comfortable in ED, playing on phone comfortably, and is in no acute distress. Patient was instructed to follow up with dentist for further evaluation. Disposition Counseled Patient/Family Regarding: Diagnosis, Need For Followup - Disposition Disposition Time: 05:15 Condition: STABLE Additional Instructions: Follow up with a dentist in clinic / office Take motrin for your pain Return if any concerns Prescriptions: Ibuprofen [Motrin] 600 mg PO Q6H #20 tab Instructions: Dental Pain (DC) Forms: [employer] (Upper Sor[place]) - Clinical Impression Clinical Impression: Pain, dental - PA / ELECTRICAL EQUIPMENT TECHNICIAN / Resident Statement MD/DO has reviewed & agrees with the documentation as recorded. - Scribe Statement The provider has reviewed the documentation as recorded by the Scribe Ryan Brody All medical record entries made by the Scribe were at my direction and personally dictated by me. I have reviewed the chart and agree that the record accurately reflects my personal performance of the history, physical exam, medical decision making, and the department course for this patient. I have also personally directed, reviewed, and agree with the discharge instructions and disposition.
[2018-07-11 05:40] VITALS: BP 120/70; PULSE 80; RESP 14
[2018-07-11 05:54] VITALS: O2SAT 99
== END 2018-07-11 05:40 | disposition home or self-care (01) ==
LOC: C.ER 04:51
DX: K08.89 Other specified disorders of teeth and supporting structures (principal)